=== PATIENT | female | born 1955 | race Caucasian/White ===

== ENCOUNTER → 2017-03-15 | Outpatient (CLI) | payer OTHER ==
[~2017-03-15] MED LIST: BACTRIM DS TAB1 EACH PO; BACTRIM OR; COLACE100 MG PO; IBUPROFEN 800800 M1 PO; LOVENOX SC; NITROGLYCERIN0.4 MG SL; PERCOCET 2.5-31 EACH PO; VICODIN ES TAB1 EACH PO
== END ==
LOC: M.RAD 12:35
DX: Z12.31 Encounter for screening mammogram for malignant neoplasm of breast (principal)

== ENCOUNTER → 2017-03-22 | Outpatient (CLI) | payer OTHER | LOC: M.ULTRA 09:48 | DX: N63.10 Unspecified lump in the right breast, unspecified quadrant (principal) ==

== ENCOUNTER → 2017-05-10 | Outpatient (CLI) | payer OTHER | LOC: M.RAD 12:23 | DX: M81.0 Age-related osteoporosis without current pathological fracture (principal); N91.2 Amenorrhea, unspecified; Z78.0 Asymptomatic menopausal state ==

== ENCOUNTER → 2018-02-27 | Outpatient (CLI) | payer OTHER | LOC: M.RAD 02-21 10:00 | DX: Z12.31 Encounter for screening mammogram for malignant neoplasm of breast (principal) ==

== ENCOUNTER → 2018-03-19 | Outpatient (CLI) | payer OTHER | LOC: M.RAD 10:33 | DX: M16.0 Bilateral primary osteoarthritis of hip (principal); M54.10 Radiculopathy, site unspecified ==

== ENCOUNTER → 2020-12-14 | Outpatient (CLI) | payer OTHER | LOC: M.RAD 10:06 | PROVIDERS: ATTEND Family Medicine | DX: Z12.31 Encounter for screening mammogram for malignant neoplasm of breast (principal); Z13.820 Encounter for screening for osteoporosis; M85.88 Other specified disorders of bone density and structure, other site; M81.0 Age-related osteoporosis without current pathological fracture ==

== ENCOUNTER → 2021-03-23 | Outpatient (CLI) | payer OTHER | LOC: M.LAB 09:43 | PROVIDERS: ATTEND Internal Medicine Gastroenterology | DX: Z01.812 Encounter for preprocedural laboratory examination (principal); Z20.822 Contact with and (suspected) exposure to COVID-19 ==